=== PATIENT | female | born 1945 | race Caucasian/White ===

== ENCOUNTER 2016-05-20 14:19 | Emergency (ER) | payer MEDICARE ==
--- NOTE | 2016-05-20 15:43 | CT ---
EXAMINATION : PELVIS W/O CON HISTORY: Ground-level fall. Bilateral hip pain. COMPARISONS: Prior CT scan abdomen and pelvis dated 10/26/2009. Technique: A noncontrast CT scan the pelvis was acquired in a standard fashion. FINDINGS: There are bilateral vertical sacral alar fractures paralleling the sacroiliac joints. These do not appear to extend into the sacral neuroforamina. There is minimal displacement. There is also a possible buckle insufficiency fracture at the S2 segment anteriorly. This is minimally displaced. A complete transverse fracture of the sacrum is not currently appreciated. 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 The remainder of the osseous structures appear intact. No other displaced fracture is identified. Left total hip arthroplasty is noted. The visualized segments of the intrapelvic contents are grossly unremarkable. Please note this examination is limited due to lack of contrast. The proximal femurs are within normal limits. The superior and inferior pubic rami are unremarkable. IMPRESSION: Insufficiency fractures of the sacral ala with bilateral vertical component fractures within zone 1. There is also a possible incomplete transverse buckle fracture of the S2 segment. Findings were discussed with Dr. Eli at 3:37 PM 05/20/2016
[2016-05-20] MEDS ORDERED: OXYCODONE/ACETAMINOPHEN 5/325 MG TABLET ONE (16:30)
== END 2016-05-20 16:54 | disposition home or self-care (01) ==
LOC: ED 14:19
DX: M84.48XA Pathological fracture, other site, initial encounter for fracture (principal); G20 Parkinson's disease; W01.10XA Fall on same level from slipping, tripping and stumbling with subsequent striking against unspecified object, initial encounter
CPT/HCPCS: 72192; 99283 ×2; A9270